=== PATIENT | female | born 1980 | race Caucasian/White ===

== ENCOUNTER 2017-05-31 14:11 | Emergency (ER) | payer BC ==
[2017-05-31 14:34] VITALS: TEMP 98.8
[2017-05-31 14:36] VITALS: BMI 25.3
--- NOTE | 2017-05-31 15:29 | PDOC ---
History of Present Illness - General History Source: Patient Exam Limitations: No Limitations - History of Present Illness Initial Comments: 05/31/17 15:31 The patient is a 37 year old female , with no significant past medical history, who presents to the emergency department with, low blood pressure and the flu. The patient reports she was diagnosed with Influenza B on Monday and since been taking Tamiflu. She reports finishing her last dose today, however, she still had a sore throat, productive cough with yellow phlegm, body aches, chills, and a subjective fever. She reports that she went to urgent care and her blood pressure systolic reading was in the 80s. She reports she has been eating mostly soup and liquids. The patient works in a school. She reports sick contacts of her children. Her blood pressure was tested both supine and standing and was observed to be normal. She denies recent headache or dizziness. She denies recent nausea, vomit, diarrhea or constipation. She denies recent dysuria, frequency, urgency or hematuria. She denies recent chest pain or shortness of breath. Allergies: NKA Past surgical history: 2 C-Sections. Social history: Nonsmoker. Denies EtOH use and recreational drug use. Familial History: Paternal [place] <Sydnee Contreras - Last Filed: 05/31/17 15:31> <Navid Birmingham - Last Filed: 05/31/17 17:17> - General Chief Complaint: Blood Pressure Problem Stated Complaint: HYPOTENTION Time Seen by Provider: 05/31/17 15:25 Past History <Sydnee Contreras - Last Filed: 05/31/17 15:31> - Past Medical History COPD: No Other medical history: INFLUENZA B POSITIVE - Reproductive History Is Patient Now?: Yes (11.5 WEEKS) (#): 2 - Suicide/Smoking/Psychosocial Hx Smoking History: Never smoked Have you smoked in the past 12 months: No Information on smoking cessation initiated: No Hx Alcohol Use: No Drug/Substance Use Hx: No Substance Use Type: None <Navid Birmingham - Last Filed: 05/31/17 17:17> - Past Medical History Allergies/Adverse Reactions: Allergies Allergy/AdvReac Type Severity Reaction Status Date / Time No Known Allergies Allergy Verified 05/31/17 14:29 Home Medications: Ambulatory Orders Oseltamivir Phosphate [Tamiflu -] 30 mg PO DAILY 05/31/17 Review of Systems - Review of Systems Able to Perform ROS?: Yes Comments:: 05/31/17 15:32 CONSTITUTIONAL: Present: +Subjective fever. +Chills. +Body aches. Absent: no fatigue EYES: Absent: visual changes ENT: Present: +Sore throat. Absent: ear pain CARDIOVASCULAR: Absent: chest pain, no palpitations RESPIRATORY: Present: +Productive cough. Absent: no SOB GI: Absent: abdominal pain, no nausea, no vomiting, no constipation, no diarrhea GENITOURINARY: Absent: dysuria, no frequency, no hematuria MUSKULOSKELETAL: Absent: back pain, no arthralgia, no myalgia SKIN: Absent: rash NEURO: Absent: headache All Other Systems: Reviewed and Negative <Sydnee Contreras - Last Filed: 05/31/17 15:31> *Physical Exam - Vital Signs Last Vital Signs Temp Pulse Resp BP Pulse Ox 98.8 F 69 20 97/66 100 05/31/17 14:12 05/31/17 14:27 05/31/17 14:12 05/31/17 14:27 05/31/17 14:12 - Physical Exam Comments: 05/31/17 15:32 GENERAL: Well developed, well nourished. Awake and alert. No acute distress. HEENT: +Mildly ejecting pharynx. Normocephalic, atraumatic. PERRLA, EOMI. No conjunctival pallor. Sclera are non-icteric. Moist mucous membranes. NECK: Supple. Full ROM. No JVD. Carotid pulses 2+ and symmetric, without bruits. No thyromegaly. No lymphadenopathy. CARDIOVASCULAR: Regular rate and rhythm. No murmurs, rubs, or gallops. Distal pulses are 2+ and symmetric. PULMONARY: No evidence of respiratory distress. Lungs clear to auscultation bilaterally. No wheezing, rales or rhonchi. ABDOMINAL: Soft. Non-tender. Non-distended. No rebound or guarding. No organomegaly. Normoactive bowel sounds. MUSCULOSKELETAL Normal range of motion at all joints. No bony deformities or tenderness. No CVA tenderness. EXTREMITIES: No cyanosis. No clubbing. No edema. No calf tenderness. SKIN: Warm and dry. Normal capillary refill. No rashes. No jaundice. NEUROLOGICAL: Alert, awake, appropriate. Cranial nerves 2-12 intact. No deficits to light touch and temperature in face, upper extremities and lower extremities. No motor deficits in the in face, upper extremities and lower extremities. Normoreflexic in the upper and lower extremities. Normal speech. Toes are down- going bilaterally. Gait is normal without ataxia. PSYCHIATRIC: Cooperative. Good eye contact. Appropriate mood and affect. <Sydnee Contreras - Last Filed: 05/31/17 15:31> - Vital Signs Last Vital Signs Temp Pulse Resp BP Pulse Ox 98.8 F 69 20 97/66 100 05/31/17 14:12 05/31/17 14:27 05/31/17 14:12 05/31/17 14:27 05/31/17 14:12 <Navid Birmingham - Last Filed: 05/31/17 17:17> ED Treatment Course - LABORATORY CBC & Chemistry Diagram: 05/31/17 15:30 05/31/17 15:30 <Navid Birmingham - Last Filed: 05/31/17 17:17> Medical Decision Making - Medical Decision Making 05/31/17 15:34 Patient was seen at urgent care center today for persistent flulike symptoms. She had just finished a 5 day course of Tamiflu. Mild body aches and chills are still present, but URI symptoms, fever have resolved and she is eating and drinking well. No recent vomiting or diarrhea. 11 weeks , 2 prior pregnancies without complication, no present symptoms of MASK DESIGNER complication including vaginal bleeding or discharge, crampy abdominal or pelvic pain. Physical exam shows a well-appearing female in no distress, well-developed well- nourished, cheerful and cooperative Blood pressure 105/71 lying, following to 97/66 with standing. No tachycardia. Remainder vital signs normal There is no pallor, mucous membranes are moist, and skin turgor is adequate There is no abdominal distention, mass, tenderness, or organomegaly. Impression: Persistent flu symptoms, improving. No sign of obstetrical complication Plan: Intravenous fluids, check electrolytes and CBC, further treatment depending on results. 05/31/17 16:28 CBC and chemistries without significant abnormality other than a mildly depressed sodium of 130. Remainder of electrolytes are normal After 2 L of fluids, the patient's blood pressure stabilized, there is no orthostatic hypotension, and no dizziness or other symptoms with arising. Continue oral rehydration at home. Return to ER if there are further symptoms, otherwise follow-up with primary physician and MASK DESIGNER physician within one week <Navid Birmingham - Last Filed: 05/31/17 17:17> *DC/Admit/Observation/Transfer - Attestations Scribe Attestion: 05/31/17 15:32 Documentation prepared by Sydnee Contreras, acting as medical reception specialist for Navid Coy MD. <Sydnee Contreras - Last Filed: 05/31/17 15:31> - Discharge Dispostion Admit: No <Navid [place] - Last Filed: 05/31/17 17:17> Diagnosis at time of Disposition: Influenza - Discharge Dispostion Disposition: HOME Condition at time of disposition: Improved - Patient Instructions Printed Discharge Instructions: DI for Dehydration -- Adult, DI for H1N1 Influenza -- Adult Additional Instructions: Return to ER immediately if there is vaginal bleeding or discharge, or crampy abdominal pelvic pain. Otherwise see primary physician and MASK DESIGNER within 1 week for follow-up. It is normal to have blood pressure at the lower levels of normal during . This is considered healthy. As long as there are no symptoms, especially lightheadedness or dizziness when you arise from a sitting position, there is no problem. Continue to monitor your pressure with your primary physician and MASK DESIGNER. If there are any further symptoms of serious nature, return to the emergency room for further evaluation. Drink fluids and eat a normal amount of salt in your diet.
[2017-05-31] MEDS ORDERED: SODIUM CHLORIDE 1,000 ML IV STA ×2 (15:32)
[2017-05-31 15:44] LABS: EOS % 1.6 % (0-4.5); WHITE BLOOD COUNT 5.7 K/mm3 (4.0-10.8)
[2017-05-31 15:56] LABS: BASO % 0.4 % (0-2.0); HEMATOCRIT 37.2 % (32.4-45.2); HEMOGLOBIN 12.4 GM/dl (10.7-15.3); LYMPH % 25.5 % (8-40); MCH 29.7 pg (25.7-33.7); MCHC 33.4 g/dl (32.0-36.0); MEAN PLT VOLUME 9.4 fl (7.5-11.1); MONO % 10.1 % (3.8-10.2); NEUT % 62.4 % (42.8-82.8); PLATELET COUNT 192 K/MM3 (134-434); RBC 4.19 M/mm3 (3.60-5.2); RDW 11.7 % (11.6-15.6)
[2017-05-31 15:57] LABS: ALBUMIN 3.3 g/dl (3.5-5.0); ALK PHOS 54 U/L (32-92); ANION GAP 9 (8-16); BILIRUBIN,TOTAL 0.7 mg/dl (0.2-1.0); BLOOD UREA NITROGEN 6 mg/dl (7-18); CALCIUM 8.5 mg/dl (8.4-10.2); CHLORIDE 98 mmol/L (98-107); CO2 23 mmol/L (22-28); CREATININE 0.6 mg/dl (0.6-1.3); POTASSIUM 3.7 mmol/L (3.5-5.1); SGOT/AST 18 U/L (10-42); SGPT/ALT 18 U/L (10-40); SODIUM 130 mmol/L (136-145); TOT PROT 5.9 g/dl (6.4-8.3)
[2017-05-31 16:48] VITALS: BP 97/59; PULSE 83
[2017-05-31 17:04] LABS: GLUCOSE,RANDOM 90 mg/dL (74-106)
== END 2017-05-31 17:18 | disposition home or self-care (01) ==
LOC: FER 14:11
PROC: 3E0337Z Introduction of Electrolytic and Water Balance Substance into Peripheral Vein, Percutaneous Approach (ICD-10-PCS; principal; 2017-05-31)
DX: O26.891 Other specified pregnancy related conditions, first trimester (principal); Z3A.11 11 weeks gestation of pregnancy; J11.1 Influenza due to unidentified influenza virus with other respiratory manifestations
CPT/HCPCS: 36415; 80053; 85025; 99283-25

== ENCOUNTER 2017-12-27 15:02 | Emergency (ER) | payer BC ==
[2017-12-27 15:06] VITALS: BP 105/72; PULSE 79; TEMP 98.8; BMI 26.4
--- NOTE | 2017-12-27 15:36 | PDOC ---
History of Present Illness - General Chief Complaint: Pain, Acute Stated Complaint: LOW ABD PAIN Time Seen by Provider: 12/27/17 15:23 - History of Present Illness Initial Comments: 37yo F with two weeks ago presenting with LLQ pain. The pain started last night while she was shopping, described as "sharp" and rated at 7/10. Certain positions and movement make the pain worse. She took maalox, gas-ex, and colace but did not feel relief of symptoms. Patient endorses nausea but no vomiting. Bowel movements have been daily formed stools, until an episode of nonbloody diarrhea this morning. History of three c-sections. Currently and last saw finishing tunnel operator, Dr. Guzman, yesterday. Denies fever, chills, chest pain, shortness of breath, dysuria, hematuria, or history of kidney stones. 12/27/17 15:49 Past History - Past Medical History Allergies/Adverse Reactions: Allergies Allergy/AdvReac Type Severity Reaction Status Date / Time No Known Allergies Allergy Verified 12/27/17 15:03 Home Medications: Ambulatory Orders NK [No Known Home Medication] 12/27/17 COPD: No DVT: No - Reproductive History (#): 2 - Suicide/Smoking/Psychosocial Hx Smoking History: Never smoked Have you smoked in the past 12 months: No Hx Alcohol Use: No Drug/Substance Use Hx: No Substance Use Type: None Review of Systems - Review of Systems Comments:: Constitutional: no fever, no chills Cardiovascular: no chest pain, no palpitations Respiratory: no cough, no shortness of breath Gastrointestinal: +abdominal pain, +nausea, no vomiting, +diarrhea, no constipation Genitourinary: no dysuria, no frequency Musculoskeletal: no myalgia, no arthralgia Skin: no rash, no itching Neurologic: no headache, no dizziness *Physical Exam - Vital Signs Last Vital Signs Temp Pulse Resp BP Pulse Ox 98.8 F 79 17 105/72 100 12/27/17 15:02 12/27/17 15:02 12/27/17 15:02 12/27/17 15:02 12/27/17 15:02 - Physical Exam Comments: General: Awake, alert, and fully oriented, in no acute distress Head: no signs of trauma Eyes: PERRL, EOMI, sclera anicteric ENT: moist mucus membranes, Neck: Normal ROM, supple Lungs: Lungs clear, Normal breath sounds Cardio: Regular rhythm, S1 and S2 present, no murmurs, rubs, or gallops Abdomen: moderate LLQ tenderness to palpation, some tenderness in RLQ, Soft, normal bowel sounds. No guarding, no rebound, no masses Extremities: Normal range of motion SKIN: Warm, Dry, normal turgor, no rashes or lesions noted Neurologic: Cranial nerves II through XII grossly intact. Normal speech ED Treatment Course - LABORATORY CBC & Chemistry Diagram: 12/27/17 15:22 12/27/17 15:22 Medical Decision Making - Medical Decision Making 37yo F with LLQ pain. DDX includes diverticulitis, kidney stone, UTI, pyelonephritis, appendicitis. Decision was made to order CT abd/pelvis with no contrast because patient is currently . 12/27/17 16:38 CT negative for acute pathology. No leukocytosis or anemia. Patient given toradol 30 for pain. Will discharge with return precautions. Patient amenable to plan. 12/27/17 17:12 Laboratory Tests 12/27/17 12/27/17 12/27/17 15:22 15:22 15:22 WBC 9.4 RBC 4.71 Hgb 14.1 Hct 42.5 MCV 90.2 MCH 29.9 MCHC 33.1 RDW 12.6 Plt Count 259 MPV 8.6 Absolute Neuts (auto) 6.1 Neutrophils % 64.7 Lymphocytes % 25.4 Monocytes % 8.2 Eosinophils % 1.3 Basophils % 0.4 Sodium 136 Potassium 4.0 Chloride 105 Carbon Dioxide 24 Anion Gap 7 L BUN 13 Creatinine 0.6 Creat Clearance w eGFR > 60 Random Glucose 89 Calcium 8.4 Total Bilirubin 1.3 H AST 28 D ALT 33 D Alkaline Phosphatase 103 H Total Protein 6.5 Albumin 3.5 Urine Color Yellow Urine Appearance Clear Urine pH 5.5 Ur Specific Jewett <= 1.005 Urine Protein Negative Urine Glucose (UA) Negative Urine Ketones Negative Urine Blood 3+ H Urine Nitrite Negative Urine Bilirubin Negative Urine Urobilinogen 0.2 Ur Leukocyte Esterase Negative Urine RBC 5-10 Urine WBC 0-2 Urine Bacteria Few Urine HCG, Qual Negative *DC/Admit/Observation/Transfer Diagnosis at time of Disposition: Abdominal pain - Discharge Dispostion Disposition: HOME Condition at time of disposition: Stable - Referrals - Patient Instructions Printed Discharge Instructions: DI for Abdominal Pain-Adult Additional Instructions: You were seen in the emergency department for abdominal pain. Blood work was normal. CT imaging did not show acute pathology. You can control you pain with over the counter NSAIDS and the pain medicine you were already prescribed. Return to the emergency department if you experience: Shortness of breath that is severe and comes on suddenly Black or bloody stools Pain or tightness in your chest Severe wheezing and/or coughing Rapid breathing Bluish color of the skin due to a lack of oxygen Lightheadedness or fainting Rapid, irregular heartbeat, or chest pain If you think you have an emergency, call for medical help right away - Post Discharge Activity
[2017-12-27 15:53] LABS: PH,URINE 5.5 (4.5-8); URINE APPEARANCE Clear; URINE BILIRUBIN Negative (NEGATIVE); URINE COLOR Yellow; URINE GLUCOSE (UA) Negative (NEGATIVE); URINE KETONE Negative (NEGATIVE); URINE LEUK ESTERASE Negative (NEGATIVE); URINE NITRITE Negative (NEGATIVE); URINE PROTEIN Negative (NEGATIVE); URINE UROBILINOGEN 0.2 (0.2-1.0)
[2017-12-27 15:58] LABS: HCG,QUALITATIVE URINE Negative
[2017-12-27 16:10] LABS: ALBUMIN 3.5 g/dl (3.5-5.0); ALK PHOS 103 U/L (32-92); ANION GAP 7 (8-16); BILIRUBIN,TOTAL 1.3 mg/dl (0.2-1.0); BLOOD UREA NITROGEN 13 mg/dl (7-18); CALCIUM 8.4 mg/dl (8.4-10.2); CHLORIDE 105 mmol/L (98-107); CO2 24 mmol/L (22-28); CREATININE 0.6 mg/dl (0.6-1.3); GLUCOSE,RANDOM 89 mg/dl (74-106); SGOT/AST 28 U/L (10-42); SGPT/ALT 33 U/L (10-40); SODIUM 136 mmol/L (136-145); TOT PROT 6.5 g/dl (6.4-8.3)
[2017-12-27 16:13] LABS: BASO % 0.4 % (0-2.0); EOS % 1.3 % (0-4.5); HEMATOCRIT 42.5 % (32.4-45.2); HEMOGLOBIN 14.1 GM/dl (10.7-15.3); LYMPH % 25.4 % (8-40); MCH 29.9 pg (25.7-33.7); MCHC 33.1 g/dl (32.0-36.0); MEAN CELL VOLUME 90.2 fl (80-96); MEAN PLT VOLUME 8.6 fl (7.5-11.1); MONO % 8.2 % (3.8-10.2); NEUT % 64.7 % (42.8-82.8); PLATELET COUNT 259 K/MM3 (134-434); RBC 4.71 M/mm3 (3.60-5.2); RDW 12.6 % (11.6-15.6); WHITE BLOOD COUNT 9.4 K/mm3 (4.0-10.8)
[2017-12-27] MEDS ORDERED: KETOROLAC TROMETHAMINE 30 MG/1 ML VIAL IVPUSH ONE (17:05)
[2017-12-27 17:07] LABS: URINE BACTERIA FEW /hpf (NEGATIVE); URINE WBC 0-2 (0-5)
[2017-12-27] MEDS ORDERED: KETOROLAC TROMETHAMINE 30 MG/1 ML VIAL ONE (17:17)
== END 2017-12-27 17:44 | disposition home or self-care (01) ==
LOC: FER 15:02
PROC: 3E0333Z Introduction of Anti-inflammatory into Peripheral Vein, Percutaneous Approach (ICD-10-PCS; principal; 2017-12-27)
DX: R10.9 Unspecified abdominal pain (principal)
CPT/HCPCS: 36415; 74176-TC; 80053; 81003; 81015; 84703; 85025; 87040; 87086; 99283-25